=== PATIENT | male | born 1970 | race Native Hawaiian/Other Pacific Islander ===

== ENCOUNTER 2018-12-27 09:30 | Outpatient (CLI) | payer SELFPAY | END 2018-12-27 23:59 | disposition home or self-care (01) | LOC: WOU 09:30 | PROVIDERS: ATTEND Podiatrist Foot & Ankle Surgery | DX: M77.51 Other enthesopathy of right foot and ankle (principal); M21.621 Bunionette of right foot; L84 Corns and callosities; R60.0 Localized edema | CPT/HCPCS: A6402; G0463 ==